=== PATIENT | female | born 1975 | race Caucasian/White ===

== ENCOUNTER 2021-04-28 19:37 | Emergency (ER) | payer OTHER ==
[2021-04-28 20:11] LABS: RED BLOOD COUNT 4.3 M/UL (4.00-5.10); WHITE BLOOD COUNT 7.5 K/UL (4.5-11.0)
[2021-04-28 20:32] LABS: BUN/CREATININE RATIO 14 (0-10)
[2021-04-28] MEDS ORDERED: TORADOL 10 MG T10 MG PO (22:51)
== END 2021-04-28 23:10 | disposition home or self-care (01) ==
LOC: ER1 19:37
PROVIDERS: Family Medicine
DX: K80.20 Calculus of gallbladder without cholecystitis without obstruction (principal); E03.9 Hypothyroidism, unspecified; F17.210 Nicotine dependence, cigarettes, uncomplicated
CPT/HCPCS: 80053; 81001; 83690; 84439; 84443; 85025; 93005; 96374; 96375; 99284; J1885; J2270; J2405